=== PATIENT | female | born 1985 | race African-American/Black ===

== ENCOUNTER → 2016-12-18 | Outpatient (CLI) | payer BC ==
[~2016-12-18] MED LIST: PHENERGAN25 M1 PO; PRENATAL 1+1)(P1 TAB PO
== END | disposition disaster alternative care site (69) ==
LOC: GRAD 12-13 16:00
DX: M25.562 Pain in left knee (principal); M25.462 Effusion, left knee; M89.8X8 Other specified disorders of bone, other site; R60.0 Localized edema; Z87.39 Personal history of other diseases of the musculoskeletal system and connective tissue